=== PATIENT | male | born 1970 | race Caucasian/White ===

== ENCOUNTER 2017-06-26 02:44 | Emergency (ER) | payer BC ==
[~2017-06-26] VITALS: Ht 167.6 cm; Wt 68.0 kg
[2017-06-26] MEDS ORDERED: SITA1TAB6 PO (03:02)
[2017-06-26] MEDS ORDERED: METO25 PO (03:02)
[2017-06-26] MEDS ORDERED: SIMV-259 PO (03:02)
[2017-06-26 03:46] LABS: BASOPHILS % (AUTO) 0.8 % (0.0-2.0); EOSINOPHILS % (AUTO) 4.3 % (1.0-6.0); HEMATOCRIT 32.1 % (41-53); HEMOGLOBIN 10.4 g/dL (13.5-17.5); LYMPHOCYTES # (AUTO) 1.4 K/uL (1.0-4.8); LYMPHOCYTES % (AUTO) 27.1 % (22.0-44.0); MEAN CORPUSCULAR HEMOGLOBIN 22.1 pg (26.0-34.0); MEAN CORPUSCULAR HGB CONC 32.3 G/dL (31.0-37.0); MEAN CORPUSCULAR VOLUME 69 fL (80-100); MONOCYTES # (AUTO) 0.6 K/uL (0.1-1.0); MONOCYTES % (AUTO) 10.9 % (2.0-9.0); NEUTROPHILS % (AUTO) 56.9 % (40.0-70.0); PLATELET COUNT (AUTO) 321 K/uL (150-450); RED BLOOD CELL COUNT(AUTO) 4.68 MIL/uL (4.50-5.90); WHITE BLOOD COUNT (AUTO) 5.3 K/uL (4.5-11.0)
[2017-06-26 03:49] LABS: PROTHROMBIN TIME 10.8 SEC (9.4-11.6)
[2017-06-26 03:55] LABS: ALANINE AMINOTRANSFERASE 29 U/L (12-78); ALBUMIN 4.1 g/dL (3.4-5.0); ASPARTATE AMINOTRANSFERASE 34 U/L (15-37); BILIRUBIN,TOTAL 0.8 mg/dL (0.1-1.0); CALCIUM, TOTAL 9.1 mg/dL (8.8-10.5); CARBON DIOXIDE 28 mmol/L (22-29); CREATINE KINASE MB 3.2 ng/mL (0-5); CREATINE KINASE, TOTAL 327 U/L (39-308); CREATININE 0.64 mg/dL (0.60-1.30); GLOMERULAR FILTR. RATE CALC > 60 mL/min (>60); TOTAL PROTEIN, SERUM 7.2 g/dL (6.4-8.2); UREA NITROGEN, BLOOD 5 mg/dL (7-18)
[2017-06-26 03:59] LABS: ANION GAP 7 mmol/L (8-16); CHLORIDE 93 mmol/L (98-107); POTASSIUM 4.4 mmol/L (3.5-5.1); SODIUM SERUM 128 mmol/L (136-145)
[2017-06-26 04:02] LABS: RBC MORPHOLOGY COMMENT ABNORMAL RBC MORPH
[2017-06-26 07:25] VITALS: BP 131/88
== END 2017-06-26 08:45 | disposition home or self-care (01) ==
LOC: EMS 02:46 → EDSEX 02:46 → EMS 08:45
DX: R07.89 Other chest pain (principal); R05 Cough; R21 Rash and other nonspecific skin eruption; E11.9 Type 2 diabetes mellitus without complications; I25.2 Old myocardial infarction; Z87.891 Personal history of nicotine dependence
CPT/HCPCS: 93005; 99285